=== PATIENT | female | born 1955 | race Caucasian/White ===

== ENCOUNTER 2024-01-29 16:35 | Emergency (ER) | payer MEDICARE, SELFPAY ==
--- NOTE | ~2024-01-29 | XR_ITS ---
EXAMINATION: XR LUMBOSACRAL SPINE CLINICAL INFORMATION: Pain. Injury. COMPARISON: CT abdomen and pelvis December 05, 2019 TECHNIQUE: Three views of the lumbosacral spine. FINDINGS: There is osteopenia. Multilevel compression deformities appear to be chronic. L1: Slight central depression of the superior endplate. This is new since 2020. Central depression of the inferior endplate is chronic unchanged since 2020. L2: Slight compression of the inferior endplate with subchondral sclerosis new since 2019. L3: Moderate compression of the central superior endplate new since 2019. L4: Moderate central compression of the superior endplate unchanged since 2020. L5: No compression deformity. Multilevel degenerative spondylosis spine. Multilevel disc height narrowing most significant at L4-L5. Vertebral endplate spurs. Marked degenerative arthrosis of the lower 3 lumbar disc levels posterior facet joints. This is most significant at the lumbosacral junction. Vascular calcification of aorta and iliac arteries. No evidence of aneurysm. XR/XR lumbar spine 2-3V IMPRESSION: 1. Osteopenia. 2. Multilevel compression deformities of the lumbar spine. The L1, L2, L3 vertebral bodies are new since prior study of December 05, 2019. These are otherwise indeterminate for age. 3. Multilevel degenerative spondylosis of the lumbar spine.
[2024-01-29 16:58] VITALS: BP 133/79; PULSE 75; RESP 18; TEMP 36.1; O2SAT 97; BMI 25.8
--- NOTE | 2024-01-29 16:59 | ED.GENADULT ---
HPI - General Adult General Chief complaint: Extremity Injury, Lower Stated complaint: R sided flank pain Time Seen by Provider: 01/29/24 19:02 Source: patient, RN notes reviewed and old records reviewed Mode of arrival: ambulatory Limitations: no limitations History of Present Illness HPI narrative: 68-year-old female presents for evaluation lower back pain. Patient reports that she was in the yd yesterday lifting heavy branches and doing yd work She states that there were no falls and there was never any point where she had a sudden onset of severe pain After doing heavy lifting she started to get worsening pain throughout the night By this morning her pain was severe and radiating to the right side Patient has a history of compression fractures and states this feels similar She denies any numbness, tingling, bladder or bowel incontinence Patient denies any fevers, chills Patient reports that over the past few years, her had been wheelchair-bound and she frequently help lift him into the chair lift to get him into bed She has had similar pains in the past that she did not seek medical attention for as the pain improved with Tylenol Today her pain did not improve with Tylenol Related Data Previous Rx's ?Medication ?Instructions ?Recorded dexamethasone 4 mg tablet 4 mg PO BID #6 tabs 01/29/24 tramadol 50 mg tablet 50 mg PO TID PRN severe pain 01/29/24 (scale score 7-10) #12 tabs Allergies Allergy/AdvReac Type Severity Reaction Status Date / Time NSAIDS (Non-Steroidal AdvReac Unknown Verified 01/29/24 17:02 Anti-Inflamma HYDROCHLOROTHIAZIDE Allergy Unknown Unknown Uncoded 01/29/24 17:02 Review of Systems Constitutional: Constitutional: Denies body ache(s), Denies chills and Denies fever(s) Eyes: Eyes: Denies blurry vision ENT: Denies sore throat Cardiovascular: Cardiovascular: Denies chest pain and Denies dyspnea Respiratory: Respiratory: Denies cough and Denies dyspnea Gastrointestinal: Gastrointestinal: Denies abdominal pain, Denies nausea and Denies vomiting Genitourinary: Genitourinary: Denies hematuria, Denies dysuria and Denies flank pain Musculoskeletal: Musculoskeletal: Reports back pain, Denies myalgias, Denies arthralgias, Denies joint swelling, Denies limited range of motion, Denies numbness, Reports stiffness and Denies tingling Integumentary/Breasts: Skin/Breast: Denies rash Neurologic: Denies numbness and Denies tingling PMFSH Social History Social History Advance Directives: No Advance Directives Information Provided: No Do you have a plan to hurt others: No Plan Physical Exam ED Vital Signs: Vital Signs - 24 hr 01/29/24 16:58 Temperature 97.0 F Pulse Rate 75 Respiratory Rate 18 Blood Pressure 133/79 Pulse Oximetry 97 Oxygen Delivery Method Room Air BMI result Body Mass Index 25.8 Const General: healthy appearing, comfortable, no acute distress, alert and awake Nutritional Appearance: well nourished Orientation/consciousness: patient oriented x3 HENMT Head: Yes normocephalic and Yes atraumatic Eyes Eyelids: Yes eyelids normal Conjunctivae: conjunctivae normal Sclerae: sclerae normal Corneas: corneas normal Pupils: Equal, round and reactive pupils present EOM: EOMs intact bilaterally Neck Neck: Yes full ROM Resp Effort & Inspection: normal respiratory effort, able to speak in complete sentences and not labored Cardio Rate: regular rate Rhythm: regular rhythm GI Inspection: No distended Palpation (GI): Soft to palpation, not firm, nontender, no guarding and not rigid Back/Spine/Pelvis Other: Tenderness across the lumbar spine and paraspinous region. No step-offs or deformities. Skin General skin exam: elasticity normal Neuro Other: Strength to bilateral lower extremities 5+ and equal bilaterally. General: patient oriented x3 Cranial nerves: Yes Equal, round and reactive pupils present and Yes Bilaterally intact EOM present Cognition (Neuro): normal cognition Extrem Other: Moving all extremities well without any obvious deformities Course Course Course Narrative: RME performed by Olga Deleon PA-C. Patient is a 68 year old assigned female at presenting to the emergency department with right sided back pain. Patient states that she was lifting heavy things yesterday and ever since has had right sided back pain. Detailed physical exam and review of systems are deferred to the primary school principal. Imaging ordered. Patient placed back in the waiting room pending room availability and results. Medical Decision Making Medical Decision Making MDM Narrative: 68-year-old female presents for evaluation lower back pain after heavy lifting yesterday. She had an x-ray that shows L1, 2, 3 compression deformity that is new over the last 4 years. With likely contributing to her pain. She has no warning signs for cauda equina syndrome. Plan to treat with dexamethasone for radicular pain and tramadol for severe breakthrough pain, she will be referred to outpatient Neurosurgery. She has no abdominal pain, tenderness on exam. Denies any GI or symptoms. I do not see any indication for further emergent workup at this time. Differential Diagnosis Differential Diagnoses: The differential diagnosis associated with the presentation includes Compression fracture Muscle strain Radiculopathy Sciatica Independent Interpretation I performed an independent interpretation of an: Plain X-Ray Interpretation: Agree with Radiology interpretation of compression deformity Radiology Impression Discussion of test interpretation with radiology: I have reviewed the radiologist's reading. Radiologist Impression: IMPRESSION: 1. Osteopenia. 2. Multilevel compression deformities of the lumbar spine. The L1, L2, L3 vertebral bodies are new since prior study of December 05, 2019. These are otherwise indeterminate for age. 3. Multilevel degenerative spondylosis of the lumbar spine. Discharge Plan Discharge Clinical Impression: Compression fracture of lumbar vertebra Patient Disposition: Home, Self-Care Instructions: Vertebral Compression Fracture (ED), Vertebroplasty (DC) Additional Instructions: Your workup in the ER today was significant for compression fractures of L1, L2, and L3 which are new since her last x-ray from 4 years ago. These are likely contributing to your lower back pain I put in a referral to Dr. Buchanan, who is a neurosurgeon and can discuss potential treatment options with you. You should call his office on Thursday In the meantime, you may use Tylenol for pain Use tramadol for severe breakthrough pain This may make you sleepy, did not drink alcohol or drive after taking it Take dexamethasone twice daily for the next 3 days Follow-up with your primary doctor Return for new or worsening symptoms Prescriptions: New dexamethasone 4 mg tablet 4 mg PO BID Qty: 6 0RF tramadol 50 mg tablet 50 mg PO TID PRN (Reason: severe pain (scale score 7-10)) Qty: 12 0RF Referrals: James Bill MD, PhD [Physician] - (multiple compression fractures) Print Language: Citizen Of [place]
[2024-01-29 20:02] VITALS: BP 148/80; PULSE 69; RESP 19; TEMP 36.6; O2SAT 98
[2024-01-29] MEDS: dexAMETHasone 4 MG TABLET PO (20:23)
[2024-01-29 20:28] VITALS: BP 148/80; PULSE 69; RESP 19; TEMP 36.6; O2SAT 98
== END 2024-01-29 20:29 | disposition home or self-care (01) ==
PROVIDERS: Emergency Provider Internal Medicine
DX: S32.010A Wedge compression fracture of first lumbar vertebra, initial encounter for closed fracture (principal); S32.020A Wedge compression fracture of second lumbar vertebra, initial encounter for closed fracture; S32.030A Wedge compression fracture of third lumbar vertebra, initial encounter for closed fracture; X50.0XXA Overexertion from strenuous movement or load, initial encounter; Y93.H9 Activity, other involving exterior property and land maintenance, building and construction; Y92.017 Garden or yard in single-family (private) house as the place of occurrence of the external cause; Y99.9 Unspecified external cause status
CPT/HCPCS: 72100; 99283; 99284; J8540

== ENCOUNTER 2024-07-14 17:50 | Emergency (ER) | payer MEDICARE, SELFPAY ==
--- NOTE | ~2024-07-14 | XR_ITS ---
EXAMINATION: XR ANKLE, LEFT XR FOOT, LEFT CLINICAL INFORMATION: Pain status-post twisting injury. COMPARISON: None available. TECHNIQUE: AP, lateral, and mortise views of the left ankle. AP, lateral, and oblique views of the left foot. FINDINGS: There is bony demineralization. An oblique, mildly displaced fracture is seen of the mid shaft of the fifth metatarsal bone. There is adjacent soft tissue swelling. There has been a prior fifth toe amputation. A hallux valgus and metatarsus adductus configuration is seen. There is a large bunion of the medial aspect of the head of the first metatarsal bone, with adjacent mild soft tissue swelling. The ankle mortise is intact. No left ankle joint effusion is seen. Boehler's angle is normal. There is no calcaneal spur. No soft tissue gas or foreign body is seen. XR/XR foot LT min 3V IMPRESSION: 1. An oblique, mildly displaced fracture is seen of the left fifth metatarsal shaft. 2. A large finding is seen of the first metatarsal head. Electronically signed by: Hernandez Perales MD 07/14/2024 09:14 PM EDT RP
--- NOTE | ~2024-07-14 | XR_ITS ---
EXAMINATION: XR ANKLE, LEFT XR FOOT, LEFT CLINICAL INFORMATION: Pain status-post twisting injury. COMPARISON: None available. TECHNIQUE: AP, lateral, and mortise views of the left ankle. AP, lateral, and oblique views of the left foot. FINDINGS: There is bony demineralization. An oblique, mildly displaced fracture is seen of the mid shaft of the fifth metatarsal bone. There is adjacent soft tissue swelling. There has been a prior fifth toe amputation. A hallux valgus and metatarsus adductus configuration is seen. There is a large bunion of the medial aspect of the head of the first metatarsal bone, with adjacent mild soft tissue swelling. The ankle mortise is intact. No left ankle joint effusion is seen. Boehler's angle is normal. There is no calcaneal spur. No soft tissue gas or foreign body is seen. XR/XR ankle LT min 3V IMPRESSION: 1. An oblique, mildly displaced fracture is seen of the left fifth metatarsal shaft. 2. A large finding is seen of the first metatarsal head. Electronically signed by: Hernandez Perales MD 07/14/2024 09:14 PM EDT RP
[2024-07-14 17:53] VITALS: BP 185/95; PULSE 87; RESP 20; TEMP 37; O2SAT 95; BMI 25.6
--- NOTE | 2024-07-14 17:54 | ED.GENADULT ---
HPI - General Adult General Chief complaint: Extremity Problem Stated complaint: left foot sprain? Time Seen by Provider: 07/14/24 20:01 Source: patient Mode of arrival: ambulatory Limitations: no limitations History of Present Illness ED Provider: mckenzie HPI narrative: Patient apparently was walking tripped comes with left foot pain and ecchymosis on the dorsum of the left foot Related Data Previous Rx's ?Medication ?Instructions ?Recorded dexamethasone 4 mg tablet 4 mg PO BID #6 tabs 01/29/24 tramadol 50 mg tablet 50 mg PO TID PRN severe pain 01/29/24 (scale score 7-10) #12 tabs oxycodone 5 mg tablet 5 mg PO Q6H PRN pain #20 tabs 07/14/24 Allergies Allergy/AdvReac Type Severity Reaction Status Date / Time NSAIDS (Non-Steroidal AdvReac Unknown Verified 07/14/24 17:55 Anti-Inflamma HYDROCHLOROTHIAZIDE Allergy Unknown Unknown Uncoded 07/14/24 17:55 Review of Systems Review of Systems: Yes all other systems are reviewed and are negative [facility] Social History Social History Alcohol intake: never Smoked in Last 30 Days: No Use of substances other than those prescribed or required for medical reasons: No Advance Directives: No Advance Directives Information Provided: No Physical Exam ED Vital Signs: Vital Signs - 24 hr 07/14/24 17:53 07/14/24 21:13 07/14/24 21:50 Temperature 98.6 F 97.6 F Pulse Rate 87 55 75 Respiratory Rate 20 16 Blood Pressure 185/95 H 154/100 H Pulse Oximetry 95 98 Oxygen Delivery Method Room Air Room Air 07/14/24 21:51 Temperature 97.6 F Pulse Rate 75 Respiratory Rate 16 Blood Pressure 154/100 H Pulse Oximetry 98 Oxygen Delivery Method Room Air BMI result Body Mass Index 25.6 Extrem Ankle/foot/toe images: 1. Superficial ecchymosis tenderness at 5th metatarsal no deformity Course Course Course Narrative: This is a rapid medical exam performed by Sumi Dubois NP: Additional HPI, ROS, PE not included below will be deferred to primary provider. Patient is a 69-year-old female presenting with complaint of left lateral foot pain since twisting her ankle while walking in her yard earlier today. Plan: xrays Medical Decision Making Medical Decision Making MDM Narrative: Patient with left metatarsal fracture oblique minimal displaced ortho shoe was given advised to take pain medication and follow with orthopedic as needed Independent Interpretation I performed an independent interpretation of an: Plain X-Ray Radiology Impression Discussion of test interpretation with radiology: I have reviewed the radiologist's reading. Radiologist Impression: XR/XR foot LT min 3V IMPRESSION: 1. An oblique, mildly displaced fracture is seen of the left fifth metatarsal shaft. 2. A large finding is seen of the first metatarsal head. Electronically signed by: Heranndez Perales MD 07/14/2024 09:14 PM EDT RP Discharge Plan Discharge Clinical Impression: Fracture of metatarsal of left foot, closed Patient Disposition: Home, Self-Care Instructions: Foot Fracture in Adults (ED) Additional Instructions: Use boot for ambulation Keep your left leg elevated Pain medication as prescribed It will take 6-8 weeks to heal completely Follow with Orthopedics Prescriptions: New oxycodone 5 mg tablet 5 mg PO Q6H PRN (Reason: pain) Qty: 20 0RF Rx Instructions: Partial Fill upon patient request. No Action dexamethasone 4 mg tablet 4 mg PO BID Qty: 6 0RF tramadol 50 mg tablet 50 mg PO TID PRN (Reason: severe pain (scale score 7-10)) Qty: 12 0RF Referrals: Sevn Crum MD [Physician] - 1 week Interventions: ED Discharge Assessment Last Done: 07/14/24 21:51 Discharge Date/Time: 07/14/24 21:53 Print Language: Macedonian
[2024-07-14 21:13] VITALS: BP 154/100; PULSE 55; RESP 16; O2SAT 98
[2024-07-14 21:50] VITALS: PULSE 75; TEMP 36.4
[2024-07-14 21:51] VITALS: BP 154/100; PULSE 75; RESP 16; TEMP 36.4; O2SAT 98
== END 2024-07-14 21:53 | disposition home or self-care (01) ==
PROVIDERS: Emergency Provider Internal Medicine; PCP Internal Medicine
DX: S92.352A Displaced fracture of fifth metatarsal bone, left foot, initial encounter for closed fracture (principal); W01.10XA Fall on same level from slipping, tripping and stumbling with subsequent striking against unspecified object, initial encounter; Y93.89 Activity, other specified; Y92.89 Other specified places as the place of occurrence of the external cause; Y99.8 Other external cause status
CPT/HCPCS: 73610; 73630; 99283; 99284

== ENCOUNTER 2024-07-16 06:23 | Emergency (ER) | payer MEDICARE, SELFPAY ==
--- NOTE | ~2024-07-16 | XR_ITS ---
EXAMINATION: XR FOOT, LEFT CLINICAL INFORMATION: Evaluate fracture COMPARISON: Prior x-ray 2 days earlier TECHNIQUE: AP, lateral, and oblique views of the left foot. FINDINGS: Stable oblique mildly displaced fracture of the diaphysis of the fifth metatarsal. Hallux valgus, developing bunion of the head of the first metatarsal. Amputation of the fifth toe. XR/XR foot LT min 3V IMPRESSION: 1. Stable oblique mildly displaced fracture of the diaphysis of the fifth metatarsal. 2. Amputation of fifth toe. 3. Hallux valgus and developing bunion of the head of the first metatarsal.. Electronically signed by: Mohamud Banda MD 07/16/2024 08:19 AM EDT
[2024-07-16 06:43] VITALS: BP 152/98; PULSE 74; RESP 18; TEMP 36.4; O2SAT 97; BMI 25.6
--- NOTE | 2024-07-16 07:04 | ED.EXTPRO ---
HPI - Extremity Problem General Chief complaint: Extremity Problem Stated complaint: blue left foot and swelling Time Seen by Provider: 07/16/24 06:34 Source: patient, RN notes reviewed and old records reviewed Mode of arrival: ambulatory History of Present Illness ED Provider: Quintin Ma PA-C HPI Narrative: 69 yo F with a PMH of HTN, HDL, s/p left 5th metatarsal mid shaft fracture on 07/14/2024 dx in our ED presents today c/o increased swelling and ecchymosis to her left foot. Patient states that since the incident she has been trying to keep off of it and keep it elevated but yesterday she had the boot off all day and was bearing weight on that foot. She reports that she 1st noticed the increased swelling and bruising yesterday night. Pain is currently a 6/10. Denies pain out of proportion to the injury, fever, chills, CP, SOB, n/v, paresthesias, loss of sensation of the foot. Related Data Previous Rx's ?Medication ?Instructions ?Recorded dexamethasone 4 mg tablet 4 mg PO BID #6 tabs 01/29/24 tramadol 50 mg tablet 50 mg PO TID PRN severe pain 01/29/24 (scale score 7-10) #12 tabs oxycodone 5 mg tablet 5 mg PO Q6H PRN pain #20 tabs 07/14/24 Allergies Allergy/AdvReac Type Severity Reaction Status Date / Time NSAIDS (Non-Steroidal AdvReac Unknown Verified 07/16/24 06:48 Anti-Inflamma HYDROCHLOROTHIAZIDE Allergy Unknown Unknown Uncoded 07/16/24 06:48 Review of Systems Review of Systems: Yes all other systems are reviewed and are negative Constitutional: Constitutional: Reports as per HPI [facility] Past Medical History Attestation statement: The following information was validated with the patient. Source: old records reviewed Social History Social History Alcohol intake: never Advance Directives: No Advance Directives Information Provided: Yes Do you have a plan to hurt others: No Plan Physical Exam Vital Signs: Vital Signs: Last Vital Signs Temp 97.6 F 07/16/24 06:43 Pulse 74 07/16/24 06:43 Resp 18 07/16/24 06:43 BP 152/98 H 07/16/24 06:43 Pulse Ox 97 07/16/24 06:43 O2 Del Method Room Air 07/16/24 06:43 BMI result Body Mass Index 25.6 Const: General: cooperative, healthy appearing and no acute distress Orientation/consciousness: patient oriented x3 Limitations: no limitations HEENT: Head: Yes normal to inspection and Yes atraumatic Ears: hearing grossly normal bilaterally General nose exam: Normal external nose present Face and sinus: Yes normal facial exam Eyes: General: appearance normal, both eyes and all related structures EOM: EOMs intact bilaterally Neck: Neck: Yes normal visual inspection Resp: Effort & Inspection: normal respiratory effort and no respiratory distress Auscultation: clear to auscultation bilaterally Cardio: Rate: regular rate GI: Inspection: Yes normal to inspection Skin: Rashes: no rashes Wounds: no wounds Neuro: General: patient oriented x3 and tone normal Cranial nerves: Yes CN's II-XII intact bilaterally Extrem: Other: Left ankle/foot- edema and ecchymosis to lateral aspect of foot and ankle, DP/PT pulses intact, mild tenderness elicited upon palpation to metatarsals, neurovascularly intact, limited ROM Left lower extremity: foot Course Course Course Narrative: 823--XR foot LT min 3V IMPRESSION: 1. Stable oblique mildly displaced fracture of the diaphysis of the fifth metatarsal. 2. Amputation of fifth toe. 3. Hallux valgus and developing bunion of the head of the first metatarsal.. > boot reapplied. Patient has walker at home. Will be unstable with crutches. Results discussed with patient including worrisome signs and symptoms and strict return precautions, and when to return to the emergency department. They verbalized understanding and feel safe for discharge at this time. Medical Decision Making Medical Decision Making [facility] Narrative: 69 yo F with a PMH of HTN, HDL, s/p left 5th metatarsal mid shaft fracture on 07/14/2024 dx in our ED presents today c/o increased swelling and ecchymosis to her left foot. On exam, patient is lying comfortably in the bed, nontoxic appearing. Upon exam of the left foot and ankle there is edema and ecchymosis to lateral aspect of foot and ankle, DP/PT pulses intact, mild tenderness elicited upon palpation to metatarsals, neurovascularly intact, limited ROM with concern for worsening fracture. No evidence of compartment syndrome/ cellulitis. Low suspicion osteomyelitis. Plan: Repeat x-ray left foot, re-evaluation. At great length explained to patient she should be nonweightbearing to LLE and should not be removing boot, should only remove to shower/bathing. This was unclear to patient. Ideally would put patient in posterior short-leg splint, however at baseline ambulates with walker, and feels unsteady/uncomfortable with idea of splint. Will keep patient in boot however stressed importance of nonweightbearing status and compliance with boot. Needs close follow-up with Orthopedics. Upon review of the x-ray, appears unchanged Please refer to course for remaining clinical decision making, interpretation of labs/imaging results, and discussions with consultants and/or family members. Differential Diagnosis Differential Diagnoses: The differential diagnosis associated with the presentation includes As above Admission/Observation Consideration of admission/observation: Escalation of care including admission/observation considered Independent Interpretation I performed an independent interpretation of an: Plain X-Ray Radiology Impression Discussion of test interpretation with radiology: I have reviewed the radiologist's reading. External Record Review External record reviewed: Inpatient record, Office record, Outpatient record, Prior outpatient labs, Prior outpatient radiology, Primary care record and Outside ED record Tests considered The following testing was considered but not selected: As above Prescription Management I considered prescription management with: Pain Medication Discharge Plan Discharge Clinical Impression: Closed fracture of fifth metatarsal bone Patient Disposition: Home, Self-Care Instructions: Foot Fracture in Adults (ED) Additional Instructions: YOU NEED TO KEEP BOOT ON. You may only remove to shower/bathing DO NOT PUT WEIGHT ON YOUR LEFT LEG. USE YOUR WALKER. Ice and elevate Take Tylenol and ibuprofen for pain/swelling. You were also given prescription for oxycodone, take as needed only for severe pain If your symptoms persist or worsen, pain becomes unbearable, you have increased or worsening swelling, numbness return to the emergency department Prescriptions: No Action oxycodone 5 mg tablet 5 mg PO Q6H PRN (Reason: pain) Qty: 20 0RF Rx Instructions: Partial Fill upon patient request. dexamethasone 4 mg tablet 4 mg PO BID Qty: 6 0RF tramadol 50 mg tablet 50 mg PO TID PRN (Reason: severe pain (scale score 7-10)) Qty: 12 0RF Referrals: [facility] [Provider Group] (Call on Thursday to make appointment) Print Language: Japanese
[2024-07-16 08:27] VITALS: BP 167/97; PULSE 66; RESP 16; TEMP 36.6; O2SAT 98
[2024-07-16 08:30] VITALS: BP 167/97; PULSE 66; RESP 16; TEMP 36.6; O2SAT 98
== END 2024-07-16 08:33 | disposition home or self-care (01) ==
PROVIDERS: Emergency Provider Emergency Medicine; PCP Internal Medicine
DX: S92.352A Displaced fracture of fifth metatarsal bone, left foot, initial encounter for closed fracture (principal); X58.XXXA Exposure to other specified factors, initial encounter; Y93.9 Activity, unspecified; Y92.9 Unspecified place or not applicable; Y99.9 Unspecified external cause status
CPT/HCPCS: 73630; 99282; 99283

== ENCOUNTER 2024-07-27 08:09 | Outpatient (REF) | payer MEDICARE, SELFPAY | END 2024-07-27 08:10 | disposition home or self-care (01) | LOC: HO.HOSX 08:09 | PROVIDERS: Visit Provider Physician Assistant | DX: M79.672 Pain in left foot (principal); S92.302D Fracture of unspecified metatarsal bone(s), left foot, subsequent encounter for fracture with routine healing | CPT/HCPCS: 73630; 99202 ==

== ENCOUNTER 2024-07-27 08:10 | Outpatient (AMB) | payer MEDICARE, SELFPAY ==
--- NOTE | 2024-07-27 08:26 | MHC.OFFVIS ---
Vital Signs 07/27/24 08:40 Height 5 ft 2 in Weight 140 lb BMI 25.6 Intake Visit Reasons: FC-Closed fx of 5th metatarsal bone DOI 07/14/24 Intake Note: Letty a 69 year old female who presents today for a ER follow up of left 5th metatarsal fracture, DOI 07/14/24. Patient reports she was picking her sister up from shoulder surgery when she stepped off the curb wrong. She presented to [facility] ER where xrays were taken and placed in a walking boot. She presented back to the ER 2 days later due to increased pain and swelling. She was instructed to non-weight bear. Currently she will have twinges at times with certain foot movements. Her pain has improved since her second ER visit. Denies numbness or tingling. Allergies NSAIDS (Non-Steroidal Anti-Inflamma Adverse Reaction (Verified 07/16/24 06:48) Unknown HYDROCHLOROTHIAZIDE Allergy (Unknown, Uncoded 07/16/24 06:48) Unknown HPI HPI FC-Closed fx of 5th metatarsal bone DOI 07/14/24: Details: 69-year-old female presents to the office today for an injury she sustained to her left foot approximately 10 days ago. She states she stepped off a curb when she felt pain in the left foot. She was seen in the emergency department where x-rays were obtained and she was found to have a minimally displaced left 5th metatarsal shaft fracture. She was placed in a boot and discharged home. She was referred to our office for ortho eval. 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 [facility] Social History (Updated 07/27/24 @ 08:32 by SHEKHAR Smart) Alcohol intake: never Patient Tobacco Use Status: Former Tobacco user Current occupational status: unemployed Review of Systems Const All systems reviewed & are unremarkable except as noted in HPI and below Physical Exam Vital Signs: BMI result Body Mass Index 25.6 Const General: cooperative and no acute distress Orientation/consciousness: patient oriented x3 Resp Effort & Inspection: normal respiratory effort and able to speak in complete sentences Cardio Peripheral pulses: Peripheral pulses 2+ throughout Neuro General: patient oriented x3 Extrem Other: Left foot is normal to inspection. She does have evidence of amputation of the left distal phalanx of the metatarsal. She has mild tenderness along the 5th metatarsal shaft. Some bruising present. Sensation intact pulses present. Office Procedures AMB Fracture Care Fracture Billing Code: Fracture Billing Code Results Reviewed Results Reviewed: X-rays of the left foot obtained in the office today significant for minimally displaced left 5th metatarsal fracture. Assessment & Plan Assessment & Plan (1) Fracture of metatarsal of left foot, closed: Code(s): S92.302A - Fracture of unspecified metatarsal bone(s), left foot, initial encounter for closed fracture Category: Medical Plan: We discussed options today she will continue with her walking boot which she was given in the emergency department. She can weightbear as tolerated with the boot at all times. She can remove her rest and hygiene. I explained that the course of recovery is typically 6-8 weeks for healing. She will see me back in 4-6 weeks with x-rays sooner if needed. Orders: Orders XR foot LT min 3V Today M79.672 - Pain in left foot Medications: Discontinued tramadol Discontinued Reason: Patient no longer taking 50 mg PO TID PRN 12 tabs 0RF severe pain (scale score 7-10) dexamethasone Discontinued Reason: Patient no longer taking 4 mg PO BID 6 tabs 0RF Coding Level of Care Code New Pt Level 3 (98062) Complex EM visit Add On G2211 Diagnoses Fracture of metatarsal of left foot, closed S92.302A CPT Codes Fracture Care - Fracture Billing Code: Fracture Billing Code ([id number])
[2024-07-27 08:40] VITALS: BMI 25.6
== END 2024-07-27 08:51 | disposition home or self-care (01) ==
PROVIDERS: PCP Internal Medicine; Visit Provider Physician Assistant
DX: S92.352A Displaced fracture of fifth metatarsal bone, left foot, initial encounter for closed fracture (principal); W10.1XXA Fall (on)(from) sidewalk curb, initial encounter
CPT/HCPCS: 99203; G2211

== ENCOUNTER 2024-08-31 07:52 | Outpatient (AMB) | payer MEDICARE, SELFPAY ==
[2024-08-31 08:02] VITALS: BMI 25.6
--- NOTE | 2024-08-31 08:02 | MHC.OFFVIS ---
Vital Signs 08/31/24 08:02 Height 5 ft 2 in Weight 140 lb BMI 25.6 Intake Visit Reasons: OV- LT 5th MT fx, DOI 07/14/24 Intake Note: Letty a 69 year old female who presents today for a follow up of left 5th metatarsal fracture, DOI 07/14/24. X-ray updated. Patient reports she is doing well, states no pain. She has no concerns today. Allergies NSAIDS (Non-Steroidal Anti-Inflamma Adverse Reaction (Verified 07/16/24 06:48) Unknown HYDROCHLOROTHIAZIDE Allergy (Unknown, Uncoded 07/16/24 06:48) Unknown Medication List - Last Reconciled 08/31/24 by Christy Ibarra PA-C acetaminophen 500 mg PO Q6H PRN atorvastatin 20 mg PO DAILY calcium carbonate 1,000 mg PO DAILY cholecalciferol (vitamin D3) 250 mcg PO DAILY lisinopril 40 mg PO DAILY oxycodone 5 mg PO Q6H PRN HPI HPI OV- LT 5th MT fx, DOI 07/14/24: Details: 69-year-old female who returns to the office today for a follow-up of left 5th metatarsal fracture, 07/14/24. She states she has no pain and is doing well overall. She has tried walking without the boot with no pain, She has no concerns today. [facility] Medical History (Updated 08/31/24 @ 08:34 by Christy Ibarra PA-C) Fracture of metatarsal of left foot, closed Social History Alcohol intake: never Patient Tobacco Use Status: Former Tobacco user Current occupational status: unemployed Review of Systems Const All systems reviewed & are unremarkable except as noted in HPI and below Physical Exam Vital Signs: BMI result Body Mass Index 25.6 Const General: cooperative and no acute distress Orientation/consciousness: patient oriented x3 Resp Effort & Inspection: normal respiratory effort and able to speak in complete sentences Cardio Peripheral pulses: Peripheral pulses 2+ throughout Neuro General: patient oriented x3 Extrem Other: Left foot is normal to inspection. She does have evidence of amputation of the left distal phalanx of the metatarsal. She has no tenderness along the 5th metatarsal shaft. Sensation intact pulses present. Results Reviewed Results Reviewed: X-rays of the left foot obtained in the office today significant for minimally displaced left 5th metatarsal fracture with interval healing Assessment & Plan Assessment & Plan (1) Fracture of metatarsal of left foot, closed: Code(s): S92.302A - Fracture of unspecified metatarsal bone(s), left foot, initial encounter for closed fracture Category: Medical Qualifiers: Encounter type: subsequent encounter Metatarsal bone: fifth Fracture alignment: displaced Fracture healing: with routine healing Qualified Code(s): S92.352D - Displaced fracture of fifth metatarsal bone, left foot, subsequent encounter for fracture with routine healing Plan She will begin weening out of the boot into a regular street shoe. I did educate her on using caution on uneven surfaces and explained that she may be more comfortable using the boot in these scenarios for a few weeks. She will gradually transition to a regular street shoe and increase activities as tolerated. If symptoms persist or worsens, patient will contact the office, otherwise follow-up as needed. Orders: Orders XR foot LT min 3V Today M79.672 - Pain in left foot Patient Instructions: Scribed for Christy Ibarra PA-C, by Emil Ellsworth medical aides teacher, on 08/31/2024 at 8:00 AM EST.? I, Christy Ibarra PA-C, have personally reviewed and agree with the information entered by the scribe. Coding Level of Care Code Global (96723) Diagnoses Closed displaced fracture of fifth metatarsal bone of left foot with routine healing, subsequent encounter S92.352D Encounter type: subsequent encounter Metatarsal bone: fifth Fracture alignment: displaced Fracture healing: with routine healing
== END 2024-08-31 08:34 | disposition home or self-care (01) ==
PROVIDERS: PCP Internal Medicine; Visit Provider Physician Assistant
DX: S92.352D Displaced fracture of fifth metatarsal bone, left foot, subsequent encounter for fracture with routine healing (principal)
CPT/HCPCS: 99212

== ENCOUNTER 2024-08-31 11:07 | Outpatient (REF) | payer MEDICARE, SELFPAY | END 2024-08-31 11:08 | disposition home or self-care (01) | LOC: HO.HOSX 11:07 | PROVIDERS: Visit Provider Physician Assistant | DX: M79.672 Pain in left foot (principal); S92.352D Displaced fracture of fifth metatarsal bone, left foot, subsequent encounter for fracture with routine healing | CPT/HCPCS: 73630; 99212 ==

== ENCOUNTER 2025-05-29 09:08 | Outpatient (AMB) | payer MEDICARE, SELFPAY ==
--- NOTE | 2025-05-29 09:11 | AM.OFFWIN_ITS ---
Intake Vital Signs 3 05/29/25 09:12 Height 5 ft 2 in Weight 148 lb BMI 27.1 BP 122/84 Blood Pressure Location Lt brachial Position Sitting Pulse 75 Pulse Source Pulse Oximeter Temp 97.8 F Temp Source Oral Pulse Oximetry (%) 99 Oxygen Delivery Method Room Air Intake Visit Reasons: EP-rt arm scratch & lump Intake Note: pt presents with concern for slow healing abrasion sustained 5 days ago and a tender lump on right wrist present xyears Patient Tobacco Use Status: Former Tobacco user Allergies hydrochlorothiazide Allergy (Mild, Verified 05/29/25 09:18) Unknown NSAIDS (Non-Steroidal Anti-Inflamma Adverse Reaction (Verified 07/16/24 06:48) Unknown Do you need a note to return to daycare/school/sports/work: No HPI HPI Comments 2 History of Present Illness0 Details 70 y/o Female patient who presents to [facility] walk in clinic with c/o Non- healing Scab right Forearm for 3 days. Pt wondering if the scab is infected needs Abx. Pt reports a 20 years history of small Mass right Wrist. Denies TTP - she thinks it has been growing slowly and now worried it could be CA. Pt has a PCP at [place]. [facility] Medical History (Updated 05/29/25 @ 09:48 by Roula Calle NP) Scab Mass of right wrist Fracture of metatarsal of left foot, closed Social History Alcohol intake: never Patient Tobacco Use Status: Former Tobacco user Current occupational status: unemployed Review of Systems Const All systems reviewed & are unremarkable except as noted in HPI and below Physical Exam Vital Signs: Last Vital Signs Temp 97.8 F 05/29/25 09:12 Pulse 75 05/29/25 09:12 BP 122/84 05/29/25 09:12 Pulse Ox 99 05/29/25 09:12 Oxygen Delivery Method Room Air 05/29/25 09:12 BMI result Body Mass Index 27.1 Const General: comfortable and no acute distress Nutritional Appearance: obese Orientation/consciousness: patient oriented x3 Neuro General: patient oriented x3, gait normal and moves all extremities Extrem Elbow/forearm/wrist images: 2 1. Small well healed skin scab - no infection no drainage. 2. Small round cyst a size of a Grape Fruit, mobile, non tender. Psych Speech and movement: Normal speech and movement present Assessment & Plan Assessment & Plan (1) Mass of right wrist: Code(s): R22.31 - Localized swelling, mass and lump, right upper limb Plan: Possibly Ganglion Cyst vs Mass vs Lipoma. Advised to f/u with PCP at [place] for poss referral to Ortho or General surgery for excision. (2) Scab: Code(s): R23.4 - Changes in skin texture Plan: Dry Scab healing well - no infection non Tender. Coding Level of Care Code New Pt Level 4 (64713) Diagnoses Mass of right wrist R22.31 Scab R23.4 Time Spent (min) 20
[2025-05-29 09:12] VITALS: BP 122/84; PULSE 75; TEMP 36.6; O2SAT 99; BMI 27.1
--- OUTSIDE RECORDS SUMMARY | 2025-05-29 09:48 | XMS_ITS | Encounter Summary ---
Author Organization [facility] Address [address] [place] [phone] Phone Care Team Providers Care Design Maker Name Role Phone Unknown, Unknown Primary Care Provider Greg Watson MD Primary Care Provid er Encounter Details Date Type Department Care Team (Late st Contact Info) Description 02/03/2018 Ancillary Orders Virtual Department [address] [place] [address] Talib Dawson MD [address] [place] [address] [address] [address] [email or web address] Renal insufficiency Social History Tobacco Use Types Packs/Day Years Used Date Smoking Tobacco: Never Assessed Comments Unknown Sex and Gender Information Value Date Recorded Sex Assigned at Not on file Legal Sex Female 9:59 PM EDT Gender Identity Not on file Sexual Orientation Not on file documented as of this encounter Plan of Treatment Not on file documented as of this encounter Results * US Kidneys (03/29/2018 3:36 PM EDT) Anatomical Region Laterality Modality Abdomen, Kidney Ultrasound 03/29/2018 3:49 PM EDT Impressions 03/29/2018 3:52 PM EDT No hydronephrosis. Bilateral renal cysts. POS - [id number] Narrative 03/29/2018 3:52 PM EDT COMPARISON: None FINDINGS: Kidneys are within normal limits for size measuring 9.6 x 3.9 cm on the right and 9.4 x 4.8 cm on the left. Borderline cortical thinning. Cortical echogenicity is within normal limits. No hydronephrosis or shadowing stones. There are three right renal cysts measuring up to 1.9 cm and 0.9 cm in the mid kidney and up to 1.1 cm in the upper kidney. On the left, there is a 1.5 cm mid kidney cyst. Procedure Note Gardenia Vogt MD - 03/29/2018 COMPARISON: None FINDINGS: Kidneys are within normal limits for size measuring 9.6 x 3.9 cm on theright and 9.4 x 4.8 cm on the left. Borderline cortical thinning.Cortical echogenicity is within normal limits. No hydronephrosis orshadowing stones. There are three right renal cysts measuring up to 1.9cm and 0.9 cm in the mid kidney and up to 1.1 cm in the upper kidney. Onthe left, there is a 1.5 cm mid kidney cyst. IMPRESSION: No hydronephrosis. Bilateral renal cysts. POS - [id number] Talib Dawson MD [facility] RENAL Final R esult documented in this encounter Visit Diagnoses Diagnosis Renal insufficiency Unspecified disorder of kidney and ureter Renal insufficiency Unspecified disorder of kidney and ureter documented in this encounter Care Teams Design Maker Relationship Specialty Start Date End Date Unknown, Unknown, PCP - General 02/03/18 03/17/18 Greg Bender MD [address] [place] [phone] PCP - General Pediatrics 03/18/18 documented as of this encounter Additional Source Comments The information contained in this document represents components of the legal health record. It is not the complete legal health record.[facility]
--- OUTSIDE RECORDS SUMMARY | 2025-05-29 09:48 | XMS_ITS | Clinical Summary ---
Author Organization [facility] Facility Address [address] [address] Care Team Providers Care French Drawer Name Role Phone Greg Bender MD Primary Care Provider Allergies No known active allergies Medications lisinopril (PRINIVIL,ZESTRI L) 40 MG tablet Take 1 tablet by mouth 1 (one) time each day Active aspirin (ST CHELSEY) 81 MG EC tablet Take 1 tablet by mouth 1 (one) time each day Active atorvastatin (LIPITOR) 20 MG tablet Take 20 mg by mouth 1 (one) time each day Active amLODIPine (NORVASC) 2.5 MG tablet TAKE 1 TABLET BY MOUTH DAILY 90 tablet 11 07/03/2022 Active Active Problems Problem Noted Date Diagnosed Date Stage 3a chronic kidney disease 03/21/2021 Benign essential hypertension 12/20/2020 Chronic kidney disease stage 3 12/20/2020 Renal insufficiency 12/20/2020 Stage 3b chronic kidney disease 12/20/2020 Renal osteodystrophy 12/20/2020 Hypertensive chronic kidney disease 12/20/2020 Family History Medical History Relation Comments Cancer Father Hypertension Father Heart disease Sibling 1 Hypertension Sibling 2 Relation Status Comments Father Sibling 1 Sibling 2 Social History Tobacco Use Types Packs/Day Years Used Date Smoking Tobacco: Every Day Cigarettes Alcohol Use Standard Drinks/Week Comments No 0 (1 standard drink = 0.6 oz pur e alcohol) Comments Unknown Sex and Gender Information Value Date Recorded Sex Assigned at Not on file Legal Sex Female 4:51 PM EST Gender Identity Not on file Sexual Orientation Not on file Last Filed Vital Signs Vital Sign Reading Time Taken Comments Blood Pressure 127/82 10/24/2021 11:56 AM EST Pulse 71 03/21/2021 4:28 PM EDT Temperature - - Respiratory Rate - - Oxygen Saturation 98% 03/21/2021 4:28 PM EDT Inhaled Oxygen Concentration - - Weight 60.8 kg (134 lb) 10/24/2021 11:56 AM EST Height 157.5 cm (5' 2 ) 05/12/2019 12:00 PM EDT Body Mass Index 24.51 05/12/2019 12:00 PM EDT Plan of Treatment Health Maintenance Due Date Last Done Comments Breast Cancer Screening 1955 Pneumococcal Vaccine: 50+ Ye ars (1 of 2 - PCV) 02/08/1972 Colorectal Cancer Screening: Annual FOBT 2002 Colorectal Cancer Screening: Colonoscopy 2002 Colorectal Cancer Screening: Sigmoidoscopy 2002 Influenza Vaccine (#1) 2025 Hepatitis B Vaccine Aged Out No longe r eligible based on patient's age to complete this topic Insurance Medicare Medicare Care Teams French Drawer Relationship Specialty Start Date End Date Greg Bender MD [facility] - General 10/15/20
== END 2025-05-29 09:29 | disposition home or self-care (01) ==
PROVIDERS: PCP Internal Medicine; Visit Provider Nurse Practitioner Family
DX: R22.31 Localized swelling, mass and lump, right upper limb (principal); R23.4 Changes in skin texture

== ENCOUNTER → 2025-05-29 09:08 | Outpatient (BNVA) | payer MEDICARE, SELFPAY | PROVIDERS: PCP Internal Medicine | DX: R22.31 Localized swelling, mass and lump, right upper limb (principal); R23.4 Changes in skin texture | CPT/HCPCS: 99202 ==